=== PATIENT | female | born 1950 | race Asian ===

== ENCOUNTER 2022-12-03 19:50 | Emergency (ER) | payer OTHER ==
[2022-12-03 20:26] VITALS: RESP 18; BMI 27.2
[2022-12-03 20:31] VITALS: BP 156/79; PULSE 65; TEMP 98
[2022-12-03 20:37] LABS: HEMATOCRIT 38.7 % (32.4-45.2); HEMOGLOBIN 12.8 G/dL (10.7-15.3); MCH 29.8 pg (25.7-33.7); MCHC 33.2 g/dl (32.0-36.0); MEAN CELL VOLUME 89.8 fl (80-96); MEAN PLT VOLUME 6.3 fl (7.5-11.1); PLATELET COUNT 283.6 10^3/uL (134-434); RBC 4.31 10^6/uL (3.60-5.2); RDW 15.3 % (11.6-15.6); WHITE BLOOD COUNT 9.9 10^3/uL (4.0-10.8)
[2022-12-03] MEDS ORDERED: ACETAMINOPHEN 325 MG TABLET (FP) PO ONE (20:41)
[2022-12-03] MEDS ORDERED: ACETAMINOPHEN 325 MG TABLET (FP) ONE (20:44)
[2022-12-03 20:51] LABS: ALBUMIN 3.8 g/dl (3.4-5.0); BILIRUBIN,TOTAL 0.3 mg/dl (0.2-1); CALCIUM 9.1 mg/dl (8.5-10); CREATININE 0.5 mg/dl (0.55-1.3); TOT PROT 6.9 g/dl (6.4-8.2)
[2022-12-03 21:48] LABS: PLATELET ESTIMATE ADEQUATE
[2022-12-03] MEDS ORDERED: IBUPROFEN 400 MG TABLET (FP) PO ONE ×2 (22:11→22:23)
[2022-12-03] MEDS ORDERED: oxyCODONE HCL 5 MG TABLET PO ONE (22:59)
[2022-12-03] MEDS ORDERED: oxyCODONE HCL 5 MG TABLET ONE (23:02)
== END 2022-12-03 23:17 | disposition home or self-care (01) ==
LOC: FER 19:50
DX: S42.201A Unspecified fracture of upper end of right humerus, initial encounter for closed fracture (principal); S00.83XA Contusion of other part of head, initial encounter; W01.0XXA Fall on same level from slipping, tripping and stumbling without subsequent striking against object, initial encounter
CPT/HCPCS: 36415; 70450-TC; 70486-TC; 73030-TC-RT-FY; 73060-TC-RT-FY; 80053; 82550; 84484; 85027; 93005; 99285-25

== ENCOUNTER 2023-11-19 04:29 | Day surgery (SDC) | payer OTHER ==
[2023-11-15 13:43] VITALS: BMI 27.8
[2023-11-19 08:01] VITALS: TEMP 97.8
[2023-11-19 09:16] VITALS: RESP 14
[2023-11-19 09:19] VITALS: BP 126/52; PULSE 58
== END 2023-11-19 09:36 | disposition home or self-care (01) ==
LOC: JASU-ENDO 04:29
PROVIDERS: ATTEND Internal Medicine Gastroenterology
PROC: 0DJD8ZZ Inspection of Lower Intestinal Tract, Via Natural or Artificial Opening Endoscopic (ICD-10-PCS; principal; 2023-11-19 08:00)
DX: Z12.11 Encounter for screening for malignant neoplasm of colon (principal); K64.8 Other hemorrhoids; E11.42 Type 2 diabetes mellitus with diabetic polyneuropathy; Z79.84 Long term (current) use of oral hypoglycemic drugs